=== PATIENT | female | born 2000 | race Two or more races ===

== ENCOUNTER 2021-06-21 01:25 | Emergency (ER) | payer BC ==
[~2021-06-21] VITALS: Ht 147.3 cm; Wt 58.8 kg
[2021-06-21 02:05] LABS: URINE HCG NEGATIVE (NEG)
[2021-06-21 02:07] LABS: BASOPHILS # (AUTO) 0.1 X10'3 (0-0.2); BASOPHILS % (AUTO) 0.7 % (0-1); EOSINOPHILS # (AUTO) 0.2 X10'3 (0-0.9); HEMATOCRIT 31.5 % (35.0-45.0); HEMOGLOBIN 10.2 g/dl (12.0-16.0); LYMPHOCYTES # (AUTO) 2.6 X10'3 (1.1-4.8); LYMPHOCYTES % (AUTO) 29.8 % (21-51); MEAN CORPUSCULAR HEMOGLOBIN 24.4 PG (27.0-31.0); MEAN CORPUSCULAR HGB CONC 32.3 g/dL (33.0-36.5); MEAN CORPUSCULAR VOLUME 75.4 FL (78-98); MEAN PLATELET VOLUME 8.7 FL (7.4-10.4); MONOCYTES # (AUTO) 0.7 X10'3 (0-0.9); MONOCYTES % (AUTO) 7.3 % (2-12); NEUTROPHILS # (AUTO) 5.3 X10'3 (1.8-7.7); NEUTROPHILS % (AUTO) 60.2 % (42-75); PLATELET COUNT 484 X10'3 (140-440); RED BLOOD COUNT 4.17 X10'6 (4.20-5.60); RED CELL DISTRIBUTION WIDTH 16.4 % (11.5-14.5); WHITE BLOOD COUNT 8.9 X10'3 (4.5-11.0)
[2021-06-21 02:18] LABS: ALANINE AMINOTRANSFERASE 18 U/L (12-78); ALBUMIN 3.7 G/DL (3.4-5.0); ALBUMIN/GLOBULIN RATIO 0.7 (1.1-1.5); ALKALINE PHOSPHATASE 82 IU/L (20-180); ANION GAP 11 (8-16); ASPARTATE AMINO TRANSFERASE 15 U/L (10-37); BILIRUBIN,TOTAL 0.2 MG/DL (0.1-1.0); BLOOD UREA NITROGEN 11 MG/DL (7-18); CALCIUM 9.1 MG/DL (8.5-10.1); CHLORIDE 104 MMOL/L (99-107); CREATININE 0.92 MG/DL (0.40-0.90); GLUCOSE 107 MG/DL (70-104); LIPASE < 50 U/L (73-393); POTASSIUM 3.6 MMOL/L (3.5-5.1); SODIUM 140 MMOL/L (135-145); TOTAL CARBON DIOXIDE 25.5 MMOL/L (24-32); TOTAL PROTEIN 8.8 G/DL (6.4-8.2); eGFR 78 ML/MIN
[2021-06-21 02:29] LABS: CLARITY,URINE SLIGHTLY CLOUDY (Clear); COLOR,URINE YELLOW (Yellow); GLUCOSE, URINE NEGATIVE (Neg); KETONES,URINE NEGATIVE (Neg); LEUKOCYTE ESTERASE ,URINE NEGATIVE (Neg); NITRITES, URINE NEGATIVE (Neg); OCCULT BLOOD,URINE NEGATIVE (Neg); PROTEIN,URINE TRACE mg/dl (Neg); UA COLLECTION TYPE CLN CATCH MIDSTREAM; UROBILINOGEN,URINE 0.2 E.U/dL (0.2-1.0)
[2021-06-21 02:30] LABS: MUCUS STRANDS MANY /LPF (Neg); SQUAMOUS EPITHELIAL CELL,UR MODERATE /LPF (FEW)
[2021-06-21 02:31] LABS: CAL OXALATE CRYSTALS 3+ /HPF (NEGATIVE)
[2021-06-21 02:33] LABS: BACTERIA,URINE 1+ /HPF (Neg)
[2021-06-21 02:34] LABS: RBC,URINE 0-2 /HPF (0-2); WBC,URINE 0-4 /HPF (0-4)
[2021-06-21] MEDS ORDERED: pantoprazole 40mg Tablet.DR PO STA (03:29)
[2021-06-21] MEDS ORDERED: LIDOcaine Viscous 15ml cup MM ONE (03:30)
[2021-06-21] MEDS ORDERED: mag hydrox/Alum hydrox/simeth 30ml oral suspension PO ONE (03:30)
[2021-06-21] MEDS ORDERED: OMEP20CA15 PO (03:32)
[2021-06-21] MEDS ORDERED: SUCR1TAB PO (03:32)
--- NOTE | 2021-06-21 05:52 | NUR ---
PATIENT WAS SEEN AND TREATED BY ER MD ONLY, SAVE FOR PO MEDS WHICH THIS TRIAGE NURSE ADMINISTERED. PATIENT HAD QUESTIONS ABOUT HER LOW HCT. THE DOCTOR RETURNED TO T-2 AND DISCUSSED THIS WITH PATIENT PRIOR TO DISCHARGE. PATIENT HAD NO VOMITING OR DARK STOOL. PATIENT WILL FILL RX AND FOLLOW UP WITH PMD.
[2021-06-21 05:54] VITALS: BP 132/88
== END 2021-06-21 05:56 | disposition home or self-care (01) ==
LOC: ER 01:26
DX: R10.13 Epigastric pain (principal); Z79.899 Other long term (current) drug therapy
CPT/HCPCS: 36415; 80053; 81001; 81025; 83690; 85025; 99283; 99284